=== PATIENT | female | born 1950 | race American Indian/Alaskan Native ===

== ENCOUNTER 2016-06-18 06:29 | Day surgery (SDC) | payer MEDICARE ==
[2016-06-18] MEDS ORDERED: WATER FOR IRRIG STERILE IR ONE (07:02)
[2016-06-18] MEDS ORDERED: DIPRIVAN 10 MG/ML IV ONE ×2 (07:28)
[2016-06-18] MEDS ORDERED: NACL 0.9% 1000 ML 1,000 ML IV SCH (08:00)
[2016-06-18 09:21] VITALS: BP 116/73
--- NOTE | 2016-06-18 09:42 | Anesthesia Consultation ---
Anesthesia Consult and Med Hx Date of service: 06/18/16 - Airway Anesthetic Teeth Evaluation: Dentures, Edentulous ROM Head & Neck: Adequate Mental/Hyoid Distance: Inadequate Mallampati Class: Class II Intubation Access Assessment: Probably Good - Pulmonary Exam CTA: Yes - Cardiac Exam Cardiac Exam: RRR - Pre-Operative Health Status ASA Pre-Surgery Classification: ASA3 Proposed Anesthetic Plan: MAC - Cardiovascular System Hx Hypertension: Yes - Central Nervous System Hx Neuromuscular Disorder: No - Endocrine Hx Renal Disease: Yes (patient states "cyst on kidney", protein in urine) Hx Non-Insulin Dependent Diabetes: Yes - Hematic Hx Anemia: Yes Hx Sickle Cell Disease: No - Other Systems Hx Alcohol Use: No Hx Substance Use: No Hx Cancer: Yes Hx Obesity: No - Additional Comments Anesthesia Medical History Comments: glaucoma
--- NOTE | 2016-06-18 09:43 | Anesthesia Day of Surgery ---
Anesthesia Day of Surgery - Day of Surgery Patient Examined: Yes Patient H&P Reviewed: Yes Patient is NPO: Yes
--- NOTE | 2016-06-18 09:44 | Short Stay Summary ---
Short Stay Documentation - Allergies and Medications Current Medications: Allergies No Known Allergies Allergy (Verified 06/17/16 13:32) Home Medications Medication Instructions Recorded Confirmed Last Taken Type Ferrous Gluconate [Iron 236 MG tab] 236 mg PO DAILY 04/23/15 06/17/16 06/17/16 History Lisinopril/Hydrochlorothiazide 1 tab PO QDAY 04/23/15 06/17/16 06/17/16 History [Zestoretic 20-12.5 mg] Omeprazole [PriLOSEC] 20 mg PO QDAY 04/23/15 06/17/16 06/17/16 History amLODIPine 10 mg PO DAILY 04/23/15 06/17/16 06/17/16 History cloNIDine [Catapres] 0.2 mg PO DAILY 04/23/15 06/17/16 06/17/16 History metFORMIN 1,000 mg PO DAILY 04/23/15 06/17/16 06/17/16 History metFORMIN 500 mg PO HS 06/17/16 06/18/16 06/16/16 History Active Medications Sodium Chloride (Nacl 0.9% 1000 Ml) 1,000 mls @ 50 mls/hr IV DIRECT KEYONNA Last Admin: 06/18/16 08:00 Dose: 50 mls/hr - Brief post op/procedure progress note Date of procedure: 06/18/16 Pre-op diagnosis: Colon cancer screening Post-op diagnosis: same Procedure: Colonoscopy Anesthesia: MAC Findings: as above Surgeon: SWETHA WONG Estimated blood loss: none Pathology: none Condition: stable - Disposition Condition at discharge: Stable Disposition: DISCHARGED TO HOME OR SELFCARE Short Stay Discharge Plan Activity: no restrictions Weight Bearing Status: Full Weight Bearing Diet: regular
--- NOTE | 2016-06-18 09:44 | Post Anesthesia Evaluation ---
- Post Anesthesia Evaluation Patient Participated: Yes Airway Patent: Yes Stable Respiratory Function: Yes Nausea/Vomiting: No Temp > 96.8F: Yes Pain Manageable: Yes Adequeate Hydration: Yes Anesthesia Complications: No Block Receding Appropriately: Not Applicable Patient on Ventilator: No
== END 2016-06-18 06:30 | disposition home or self-care (01) ==
LOC: GIO 06:29
PROVIDERS: ATTEND Internal Medicine Gastroenterology
DX: Z12.11 Encounter for screening for malignant neoplasm of colon (principal); K64.0 First degree hemorrhoids; Z98.0 Intestinal bypass and anastomosis status; I10 Essential (primary) hypertension; E11.9 Type 2 diabetes mellitus without complications; D64.9 Anemia, unspecified; F10.21 Alcohol dependence, in remission; Z85.038 Personal history of other malignant neoplasm of large intestine; Z83.3 Family history of diabetes mellitus; Z82.49 Family history of ischemic heart disease and other diseases of the circulatory system; Z80.0 Family history of malignant neoplasm of digestive organs; Z83.79 Family history of other diseases of the digestive system
CPT/HCPCS: 82962; G0105; J2704; J7030

== ENCOUNTER 2017-06-24 06:16 | Day surgery (SDC) | payer MEDICARE ==
[2017-06-24] MEDS ORDERED: NACL 0.9% 1000 ML 1,000 ML IV SCH (07:30)
[2017-06-24] MEDS ORDERED: NACL 0.9% 1000 ML 1,000 ML ONE (07:30)
--- NOTE | 2017-06-24 07:30 | Anesthesia Consultation ---
Anesthesia Consult and Med Hx Date of service: 06/24/17 - Airway Anesthetic Teeth Evaluation: Edentulous ROM Head & Neck: Adequate Mental/Hyoid Distance: Adequate Mallampati Class: Class II Intubation Access Assessment: Probably Good - Pre-Operative Health Status ASA Pre-Surgery Classification: ASA3 Proposed Anesthetic Plan: MAC - Cardiovascular System Hx Hypertension: Yes Hx Coronary Artery Disease: No (high cholesterol) - Central Nervous System Hx Neuromuscular Disorder: No - Endocrine Hx Renal Disease: Yes (patient states "cyst on kidney", protein in urine) Hx Non-Insulin Dependent Diabetes: Yes - Hematic Hx Anemia: Yes Hx Sickle Cell Disease: No - Other Systems Hx Alcohol Use: No Hx Substance Use: No Hx Cancer: Yes (colon CA, colon resection 2013) Hx Obesity: No
--- NOTE | 2017-06-24 07:31 | Anesthesia Day of Surgery ---
Anesthesia Day of Surgery - Day of Surgery Patient Examined: Yes Patient H&P Reviewed: Yes Patient is NPO: Yes
[2017-06-24] MEDS ORDERED: DIPRIVAN 10 MG/ML IV ONE ×2 (07:35)
[2017-06-24] MEDS ORDERED: WATER FOR IRRIG STERILE IR ONE (07:36)
[2017-06-24] MEDS ORDERED: WATER FOR IRRIG STERILE ONE (07:36)
--- NOTE | 2017-06-24 08:11 | Short Stay Summary ---
Short Stay Documentation - Allergies and Medications Current Medications: Allergies No Known Allergies Allergy (Verified 06/17/16 13:32) Home Medications Medication Instructions Recorded Confirmed Last Taken Type Ferrous Gluconate [Iron 236 MG tab] 236 mg PO DAILY 04/23/15 06/24/17 06/21/17 History Lisinopril/Hydrochlorothiazide 1 tab PO QDAY 04/23/15 06/24/17 06/22/17 History [Zestoretic 20-12.5 mg] amLODIPine 10 mg PO DAILY 04/23/15 06/24/17 06/22/17 History cloNIDine [Catapres] 0.2 mg PO DAILY 04/23/15 06/24/17 06/22/17 History metFORMIN 1,000 mg PO DAILY 04/23/15 06/23/17 06/23/17 History metFORMIN 500 mg PO HS 06/17/16 06/24/17 06/22/17 History Ranitidine HCl 150 tab PO DAILY 06/23/17 06/24/17 06/22/17 History Active Medications Sodium Chloride (Nacl 0.9% 1000 Ml) 1,000 mls @ 50 mls/hr IV DIRECT KEYONNA - Brief post op/procedure progress note Date of procedure: 06/24/17 Pre-op diagnosis: 1. Colon cancer screening 2. History of colon cancer Post-op diagnosis: same (1. Internal hemorrhoids) Procedure: Colonoscopy Anesthesia: MAC Findings: as above Surgeon: SWETHA WONG Estimated blood loss: none Pathology: none Condition: stable - Disposition Condition at discharge: Stable Disposition: DC-01 TO HOME OR SELFCARE Short Stay Discharge Plan Activity: no restrictions Weight Bearing Status: Full Weight Bearing Diet: regular, diabetic Follow up with: RADHA SHAHID MD [Primary Care Provider] - 7 Days
[2017-06-24 08:30] VITALS: BP 134/90
== END 2017-06-24 06:17 | disposition home or self-care (01) ==
LOC: GIO 06:16
PROVIDERS: ATTEND Internal Medicine Gastroenterology
DX: Z08 Encounter for follow-up examination after completed treatment for malignant neoplasm (principal); K64.0 First degree hemorrhoids; I10 Essential (primary) hypertension; Z85.038 Personal history of other malignant neoplasm of large intestine; Z98.0 Intestinal bypass and anastomosis status
CPT/HCPCS: 45378; J2704; J7030